=== PATIENT | male | born 1975 | race Caucasian/White ===

== ENCOUNTER 2017-08-13 13:39 | Outpatient (CLI) | payer OTHER | END 2017-08-13 13:40 | disposition short-term general hospital (02) | LOC: EMS 13:39 | PROVIDERS: ATTEND Surgery | DX: R07.9 Chest pain, unspecified (principal); R20.0 Anesthesia of skin | CPT/HCPCS: A0425; A0429 ==

== ENCOUNTER 2018-01-13 16:52 | Outpatient (CLI) | payer OTHER | END 2018-01-13 16:53 | disposition short-term general hospital (02) | LOC: EMS 16:52 | PROVIDERS: ATTEND Surgery | DX: T82.199A Other mechanical complication of unspecified cardiac device, initial encounter (principal) | CPT/HCPCS: A0425; A0427 ==

== ENCOUNTER 2018-01-19 07:31 | Outpatient (CLI) | payer OTHER | END 2018-01-19 07:32 | disposition short-term general hospital (02) | LOC: EMS 07:31 | PROVIDERS: ATTEND Surgery | DX: R07.9 Chest pain, unspecified (principal); R20.0 Anesthesia of skin; R06.02 Shortness of breath | CPT/HCPCS: A0425; A0427 ==

== ENCOUNTER 2019-12-25 07:18 | Outpatient (CLI) | payer MEDICARE | END 2019-12-25 07:19 | disposition short-term general hospital (02) | LOC: EMS 07:18 | PROVIDERS: ATTEND Surgery | DX: R07.9 Chest pain, unspecified (principal); R06.02 Shortness of breath | CPT/HCPCS: A0425; A0427 ==

== ENCOUNTER 2020-02-15 11:02 | Outpatient (CLI) | payer MEDICARE | END 2020-02-15 11:03 | disposition EMS.NT | LOC: EMS 11:02 | PROVIDERS: ATTEND Surgery | DX: R19.7 Diarrhea, unspecified (principal) ==

== ENCOUNTER 2020-02-16 09:27 | Outpatient (CLI) | payer MEDICARE | END 2020-02-16 09:28 | disposition short-term general hospital (02) | LOC: EMS 09:27 | PROVIDERS: ATTEND Surgery | DX: R41.82 Altered mental status, unspecified (principal); R42 Dizziness and giddiness; R06.02 Shortness of breath; R05 Cough | CPT/HCPCS: A0425; A0429 ==

== ENCOUNTER 2021-07-04 09:04 | Outpatient (CLI) | payer MEDICARE | END 2021-07-04 09:05 | disposition critical access hospital (66) | LOC: EMS 09:04 | DX: T42.4X2A Poisoning by benzodiazepines, intentional self-harm, initial encounter (principal) | CPT/HCPCS: A0425; A0427 ==

== ENCOUNTER 2021-07-04 09:22 | Inpatient (IN) | payer MEDICARE ==
[2021-07-04] MEDS ORDERED: CHARCOAL ACTIVATED 25 GM/120 ML BOTTLE PO STA (09:36)
[2021-07-04] MEDS ORDERED: FLUMAZENIL 0.1 MG/1 ML 5 ML MDV IVP STA (09:36)
[2021-07-04] MEDS ORDERED: SODIUM CHLORIDE 0.9% 1,000 ML IV STA (09:37)
--- NOTE | 2021-07-04 09:37 | ED Physician Documentation ---
PD HPI OVERDOSE - Stated complaint Stated Complaint: SI/OVERDOSE - Chief complaint Chief Complaint: MHE - History obtained from History obtained from: Patient, EMS - History of Present Illness Timing - onset: How many hours ago (1), Today (08:15 am) Subtance(s) ingested: Single (intentional with suicide intent), Benzo (27 Ativan tablets (friends Rx - he says he is not on benzos)). No: EtOH Associated symptoms: Decreased responsiveness, Altered mental status Contributing factors: Depresssed, Suicidal Similar symptoms before: Diagnosis (He states a remote history of overdose many years ago. No recent suicidal ideations until now. Ongoing depression though.) Review of Systems Unable to obtain: AMS (somnolent) Cardiac: denies: Chest pain / pressure Respiratory: denies: Cough GI: denies: Vomiting, Diarrhea PD PAST MEDICAL HISTORY - Past Medical History Cardiovascular: Other (nonischemic cardiomyopathy) Respiratory: None Neuro: None Endocrine/Autoimmune: Type 2 diabetes Psych: Depression, Anxiety, Bipolar disorder - Present Medications Home Medications: Ambulatory Orders Medication Instructions Recorded Confirmed Amantadine HCl [Amantadine] 100 mg PO BID 07/04/21 Buspirone HCl 30 mg PO BID 07/04/21 Divalproex Sodium [Depakote ER] 500 mg PO TID 07/04/21 LORazepam [Ativan] 1 mg PO DAILY PRN 07/04/21 Metoprolol Succinate 100 mg PO DAILY 07/04/21 OXcarbazepine [Trileptal] 600 mg PO TID 07/04/21 Sacubitril/Valsartan [Entresto 97 1 tablet PO BID 07/04/21 mg-103 mg Tablet] allopurinoL [Zyloprim] 100 mg PO DAILY 07/04/21 glipiZIDE [Glucotrol] 5 mg PO BID 07/04/21 hydrALAZINE [Apresoline] 25 mg PO BID 07/04/21 metFORMIN [Glucophage] 1,000 mg PO BIDWM 07/04/21 - Allergies Allergies/Adverse Reactions: Allergies Allergy/AdvReac Type Severity Reaction Status Date / Time paliperidone [From Invega] Allergy Unknown Verified 07/04/21 09:34 PD ED PE NORMAL - Vitals Vital signs reviewed: Yes - General General: No acute distress, Well developed/nourished, Other (somnolent but rouses to tactile light stimulus. ) - HEENT HEENT: Pharynx benign (good gag reflex, so can give PO charcoal. ) - Neck Neck: Supple, no meningeal sign, No adenopathy - Cardiac Cardiac: RRR, No murmur - Respiratory Respiratory: Clear bilaterally - Abdomen Abdomen: Soft, Non tender - Derm Derm: Normal color, Warm and dry - Extremities Extremities: Normal ROM s pain, No edema, No calf tenderness / cord - Neuro Neuro: Alert and oriented X 3, No motor deficit, Normal speech Results - Vitals Vitals: Vital Signs - 24 hr 07/04/21 07/04/21 07/04/21 09:30 09:58 10:03 Temperature 36.3 C L 36.4 C L Heart Rate 70 76 80 Respiratory 16 16 16 Rate Blood Pressure 129/78 128/77 135/78 H O2 Saturation 97 95 95 07/04/21 07/04/21 07/04/21 10:31 11:11 11:48 Temperature 36.5 C Heart Rate 75 78 70 Respiratory 16 23 21 Rate Blood Pressure 110/70 110/77 96/77 O2 Saturation 96 98 98 Oxygen O2 Source Room air - Labs Labs: Laboratory Tests 07/04/21 07/04/21 07/04/21 09:56 09:56 09:56 WBC 4.9 RBC 4.17 L Hgb 13.2 L Hct 37.3 L MCV 89.4 MCH 31.7 H MCHC 35.4 RDW 12.2 Plt Count 172 MPV 9.6 Neut # (Auto) 3.1 Lymph # (Auto) 1.2 L [place] # (Auto) 0.5 Eos # (Auto) 0.1 Baso # (Auto) 0.0 Absolute Nucleated RBC 0.00 Nucleated RBC % 0.0 Sodium 136 Potassium 4.0 Chloride 100 L Carbon Dioxide 25 Anion Gap 11.0 BUN 28 H Creatinine 1.0 Estimated GFR (MDRD) 80 L Glucose 161 H Calcium 8.7 Total Bilirubin 0.7 AST 21 ALT 35 Alkaline Phosphatase 78 Total Protein 7.3 Albumin 4.2 Globulin 3.1 Albumin/Globulin Ratio 1.4 Lipase 28 TSH 1.00 Nasal Adenovirus (PCR) Nasal B. parapertussis DNA (PCR) Nasal Coronavir 229E PCR Nasal Coronavir HKU1 PCR Nasal Coronavir NL63 PCR Nasal Coronavir OC43 PCR Nasal Enterovir/Rhinovir PCR Nasal Influenza B PCR Nasal Influenza A PCR Nasal Parainfluen 1 PCR Nasal Parainfluen 2 PCR Nasal Parainfluen 3 PCR Nasal Parainfluen 4 PCR Nasal RSV (PCR) Nasal B.pertussis DNA PCR Nasal C.pneumoniae (PCR) Pierre Human Metapneumo PCR Nasal M.pneumoniae (PCR) Nasal SARS-CoV-2 (PCR) Salicylates < 6.0 Acetaminophen < 10 L Ethyl Alcohol < 5.0 07/04/21 07/04/21 10:14 12:00 WBC RBC Hgb Hct MCV MCH MCHC RDW Plt Count MPV Neut # (Auto) Lymph # (Auto) [place] # (Auto) Eos # (Auto) Baso # (Auto) Absolute Nucleated RBC Nucleated RBC % Sodium Potassium Chloride Carbon Dioxide Anion Gap BUN Creatinine Estimated GFR (MDRD) Glucose Calcium Total Bilirubin AST ALT Alkaline Phosphatase Total Protein Albumin Globulin Albumin/Globulin Ratio Lipase TSH Nasal Adenovirus (PCR) NOT DETECTED NOT DETECTED Nasal B. parapertussis DNA (PCR) NOT DETECTED NOT DETECTED Nasal Coronavir 229E PCR NOT DETECTED NOT DETECTED Nasal Coronavir HKU1 PCR NOT DETECTED NOT DETECTED Nasal Coronavir NL63 PCR NOT DETECTED NOT DETECTED Nasal Coronavir OC43 PCR NOT DETECTED NOT DETECTED Nasal Enterovir/Rhinovir PCR NOT DETECTED NOT DETECTED Nasal Influenza B PCR NOT DETECTED NOT DETECTED Nasal Influenza A PCR NOT DETECTED NOT DETECTED Nasal Parainfluen 1 PCR NOT DETECTED NOT DETECTED Nasal Parainfluen 2 PCR NOT DETECTED NOT DETECTED Nasal Parainfluen 3 PCR NOT DETECTED NOT DETECTED Nasal Parainfluen 4 PCR NOT DETECTED NOT DETECTED Nasal RSV (PCR) NOT DETECTED NOT DETECTED Nasal B.pertussis DNA PCR NOT DETECTED NOT DETECTED Nasal C.pneumoniae (PCR) NOT DETECTED NOT DETECTED Pierre Human Metapneumo PCR NOT DETECTED NOT DETECTED Nasal M.pneumoniae (PCR) NOT DETECTED NOT DETECTED Nasal SARS-CoV-2 (PCR) NOT DETECTED NOT DETECTED Salicylates Acetaminophen Ethyl Alcohol PD MEDICAL DECISION MAKING - ED course Complexity details: reviewed results, re-evaluated patient (remains responsive to partly eye opening and mumbling with tactile stimulus. ), considered differential (Somnolent initially and he did respond with some increased alertness briefly with some flumazenil. Otherwise his oxygenation is good and not hypoventilating.), d/w patient ED course: The nursing called poison control and they gave the obvious precautions of blood pressure and ventilatory status and alertness for benzodiazepines. Their estimate of time for observation is at least 12 hours. He is significantly somnolent though not hypoventilating nor hypoxic. We anticipate a prolonged time for further psychological evaluation and medical clearance. As such I talked with the hospitalist who agreed on having the patient in the hospital. Departure - Departure Disposition: 66 [facility] DC/Xfer Clinical Impression: Intentional benzodiazepine overdose, AMS (altered mental status), Depression, Suicidal behavior Condition: Stable Record reviewed to determine appropriate education?: Yes
--- NOTE | 2021-07-04 10:00 | XRAY Report ---
PROCEDURE: Chest 1 View X-Ray INDICATIONS: chest pain TECHNIQUE: One view of the chest was acquired. COMPARISON: None. FINDINGS: Surgical changes and devices: A left chest wall AICD is present with a single lead projecting over th e right ventricle. Lungs and pleura: There are low lung volumes. Pulmonary vascular prominence may represent mild edema or vascular crowding. The left lateral costophrenic angle is not well visualized. No right pleural e ffusion. No pneumothorax. Mediastinum: Mediastinal contours appear normal. Heart size is normal. Bones and chest wall: No suspicious bony lesions. Overlying soft tissues appear unremarkable. IMPRESSION: 1. Low lung volumes with pulmonary vascular prominence consistent with edema or vascular crowding. Reviewed by: Yoandy Morales MD on 07/04/2021 9:59 AM PDT Approved by: Yoandy Morales MD on 07/04/2021 9:59 AM PDT Station ID: [id number]
[2021-07-04 10:04] LABS: BASOPHILS % (AUTO) 0.6 %; EOSINOPHILS # (AUTO) 0.1 10^3/uL (0.0-0.7); EOSINOPHILS % (AUTO) 1.4 %; HCT - HEMATOCRIT 37.3 % (42.0-52.0); HGB - HEMOGLOBIN 13.2 g/dL (14.0-18.0); LYMPHOCYTES # (AUTO) 1.2 10^3/uL (1.5-3.5); LYMPHOCYTES % (AUTO) 25.1 %; MEAN CORPUSCULAR HEMOGLOBIN 31.7 pg (27.0-31.0); MEAN CORPUSCULAR HGB CONC 35.4 g/dL (32.0-36.0); MEAN CORPUSCULAR VOLUME 89.4 fL (80.0-94.0); MEAN PLATELET VOLUME 9.6 fL (7.4-11.4); MONOCYTES # (AUTO) 0.5 10^3/uL (0.0-1.0); MONOCYTES % (AUTO) 9.7 %; NEUTROPHILS # (AUTO) 3.1 10^3/uL (1.5-6.6); PLT - PLATELET COUNT 172 10^3/uL (130-450); RED BLOOD COUNT 4.17 10^6/uL (4.70-6.10); RED CELL DISTRIBUTION WIDTH 12.2 % (12.0-15.0); WHITE BLOOD COUNT 4.9 x10^3/uL (4.8-10.8)
[2021-07-04 10:21] LABS: ACETAMINOPHEN < 10 ug/mL (10-30); ALBUMIN 4.2 g/dL (3.2-5.5); ALBUMIN/GLOBULIN RATIO 1.4 (1.0-2.2); ALKALINE PHOSPHATASE 78 IU/L (42-121); ALT ALANINE AMINOTRANSFERASE 35 IU/L (10-60); AST ASPARTATE AMINOTRANSFERASE 21 IU/L (10-42); BILIRUBIN,TOTAL 0.7 mg/dL (0.2-1.0); BUN - BLOOD UREA NITROGEN 28 mg/dL (6-20); CALCIUM 8.7 mg/dL (8.5-10.3); CARBON DIOXIDE - CO2 25 mmol/L (21-32); CHLORIDE 100 mmol/L (101-111); ETOH - ETHANOL < 5.0 mg/dL; GFR - MDRD 80 (>89); GLUCOSE 161 mg/dL (70-100); LIPASE 28 U/L (22-51); SALICYLATE < 6.0 mg/dL; SODIUM 136 mmol/L (135-145); TOTAL PROTEIN 7.3 g/dL (6.7-8.2)
[2021-07-04 11:12] LABS: CORONAVIRUS 229E-RESP PCR NOT DETECTED; CORONAVIRUS HKU1-RESP PCR NOT DETECTED; CORONAVIRUS NL63-RESP PCR NOT DETECTED; CORONAVIRUS OC43-RESP PCR NOT DETECTED; HUMAN METAPNEUMOVIRUS NOT DETECTED; INFLUENZA A- RESP PCR PANEL NOT DETECTED; RHINOVIRUS/ENTEROVIRUS NOT DETECTED; SARS-CoV-2 -RESP PCR PANEL NOT DETECTED
[2021-07-04 11:13] LABS: B. PARAPERTUSSIS- RESP PCR PAN NOT DETECTED; B. PERTUSSIS- RESP PCR PANEL NOT DETECTED; C. PNEUMONIAE- RESP PCR PANEL NOT DETECTED; INFLUENZA B - RESP PCR PANEL NOT DETECTED; M. PNEUMONIAE- RESP PCR PANEL NOT DETECTED; PARAINFLUENZA VIRUS 1 NOT DETECTED; PARAINFLUENZA VIRUS 2 NOT DETECTED; PARAINFLUENZA VIRUS 3 NOT DETECTED; PARAINFLUENZA VIRUS 4 NOT DETECTED; RSV- RESP PCR PANEL NOT DETECTED
[2021-07-04] MEDS ORDERED: ONDANSETRON 4 MG/2 ML VIAL IVP PRN (12:42)
[2021-07-04] MEDS ORDERED: SODIUM CHLORIDE FLUSH 0.9% 10 ML SYRINGE IVP PRN (12:42)
[2021-07-04] MEDS ORDERED: FLUMAZENIL 0.1 MG/1 ML 5 ML MDV IVP ONE (13:20)
[2021-07-04 13:23] LABS: B. PARAPERTUSSIS- RESP PCR PAN NOT DETECTED; B. PERTUSSIS- RESP PCR PANEL NOT DETECTED; C. PNEUMONIAE- RESP PCR PANEL NOT DETECTED; CORONAVIRUS 229E-RESP PCR NOT DETECTED; CORONAVIRUS HKU1-RESP PCR NOT DETECTED; CORONAVIRUS NL63-RESP PCR NOT DETECTED; CORONAVIRUS OC43-RESP PCR NOT DETECTED; HUMAN METAPNEUMOVIRUS NOT DETECTED; INFLUENZA A- RESP PCR PANEL NOT DETECTED; INFLUENZA B - RESP PCR PANEL NOT DETECTED; M. PNEUMONIAE- RESP PCR PANEL NOT DETECTED; PARAINFLUENZA VIRUS 1 NOT DETECTED; PARAINFLUENZA VIRUS 2 NOT DETECTED; PARAINFLUENZA VIRUS 3 NOT DETECTED; PARAINFLUENZA VIRUS 4 NOT DETECTED; RHINOVIRUS/ENTEROVIRUS NOT DETECTED; RSV- RESP PCR PANEL NOT DETECTED; SARS-CoV-2 -RESP PCR PANEL NOT DETECTED
[2021-07-04] MEDS: D5NS W/20 MEQ KCL 1,000 ML IV SCH (14:00)
--- NOTE | 2021-07-04 14:47 | PHARMACY PROGRESS NOTE ---
- Best Possible Medication History Admit Date and Time: 07/04/21 1242 Processed by: Pharmacy Medication History completed: Yes Patient Interview: Completed (PATIENT BROUGHT IN MED PACK WITH LIST) As the person ultimately responsible for medication therapy, providers are able to order a medication from an existing home medication list in [facility] via the "Reconcile Routine" prior to Confirmation of that medication by systems support officer. Such practice is discouraged except when the physician, in their clinical judgment, deems that a medical need exists for a medication without regard to previous use.
[2021-07-04 15:03] LABS: VALPROIC ACID (DEPAKOTE) 95.5 ug/mL
[2021-07-04 15:08] LABS: MUDS CUTOFF CONCENTRATIONS CUTOFF CONC BELOW:
[2021-07-04 15:11] LABS: BILIRUBIN,URINE NEGATIVE (NEGATIVE); GLUCOSE, URINE (UA) 500 mg/dL (NEGATIVE); KETONES,URINE (UA) TRACE mg/dL (NEGATIVE); LEUKOCYTE ESTERASE, URINE NEGATIVE (NEGATIVE); NITRITE,URINE NEGATIVE (NEGATIVE); OCCULT BLOOD,URINE NEGATIVE (NEGATIVE); PROTEIN,URINE TRACE mg/dL (NEGATIVE); UROBILINOGEN,URINE 0.2 (NORMAL) E.U./dL (NORMAL)
[2021-07-04 15:15] LABS: CLARITY,URINE CLEAR (CLEAR)
[2021-07-04 15:22] LABS: AMPHETAMINE SCREEN,URINE NEGATIVE (NEGATIVE); BARBITURATE SCREEN,UR NEGATIVE (NEGATIVE); BENZODIAZEPINES SCREEN, URINE POSITIVE (NEGATIVE); COCAINE SCREEN URINE NEGATIVE (NEGATIVE); METHADONE SCREEN, URINE NEGATIVE (NEGATIVE); METHAMPHETAMINES SCREEN, URINE NEGATIVE (NEGATIVE); OPIATE SCREEN, URINE NEGATIVE (NEGATIVE); OXYCODONE SCREEN, URINE NEGATIVE (NEGATIVE); PROPOXYPHENE SCREEN, URINE NEGATIVE (NEGATIVE); THC CANNABINOID SCREEN, URINE NEGATIVE (NEGATIVE); TRICYCLIC ANTIDEPRESSANT,URINE NEGATIVE (NEGATIVE)
--- NOTE | 2021-07-04 16:16 | HISTORY & PHYSICAL EXAMINATION ---
Chief Complaint - Chief Complaint Chief Complaint: Intentional OD History of Present Illness - Admitted From Admitted From:: ED - History Obtained From History obtained from: ED provider and at bedside - History of Present Illness HPI Comment/Other: This is a 45-year-old WM with history of obesity, Diabetes on oral agents, ideopathic cardiomyopathy diagnosed in 2016, defibrillator replaced in 2017, history of bipolar disorder with several medications recently being adjusted and he is followed closely every 2 weeks by a therapist. In 1998 he had suicidal attempt by cutting. His works from home and states that he has been open and communicating with her whether he feels dangerous emotions. Recently he has been more tired because his Entresto dose was increased which dropped his blood pressure, she said. He also has had recent paranoia of neighbors spying on him. She thinks he has been compliant with all of his psychiatric medications. He does not hold down a job, is on SSI. This morning he came in after he took the garbage out and said he was tired and was going back to sleep, then about 1 hour later, he came into her home office, was tearful and said that he intentionally took an entire bottle of Ativan as a suicide attempt. he was brought to the ED. His BP has been stable and O2 saturations have been over 90% on room air, but he is extremely lethargic and was witnessed to hypoventilate. He received Romazicon IV x1 which only resulted in briefly being more awake. He also received charcoal in the ED. The ED provider spoke to poison control center who indicated that having taken about 27 tablets of Ativan will cause somnolence for 12 to 24 hours during which time he needs to be watched. He will be admitted to the ICU because of suicidal ideation, benzodiazepine overdose, watching his ventilation, or for respiratory acidosis or coma. History - Past Medical History Cardiovascular: reports: Congestive heart failure Respiratory: reports: None Neuro: reports: None Endocrine/Autoimmune: reports: Type 2 diabetes Psych: reports: Depression, Anxiety, Bipolar disorder - Family & Social History Living arrangement: At home Living Situation: With spouse/s.o. Social History Notes: Does not work, is on SSI because of his cardiomyopathy. - POLST Patient has POLST: No POLST Status: Full Code Meds/Allgy - Home Medications Home Medications: Ambulatory Orders Medication Instructions Recorded Confirmed Amantadine HCl [Amantadine] 100 mg PO BID 07/04/21 07/04/21 Aspirin EC [Ecotrin] 81 mg PO DAILY 07/04/21 07/04/21 Atorvastatin Calcium [Lipitor] 80 mg PO QPM 07/04/21 07/04/21 Buspirone HCl 30 mg PO BID 07/04/21 07/04/21 Digoxin [Lanoxin] 125 mcg PO DAILY 07/04/21 07/04/21 Divalproex Sodium [Depakote ER] 1,500 mg PO QPM 07/04/21 07/04/21 Magnesium Chloride [Magnesium] 64 mg PO DAILY 07/04/21 07/04/21 Metoprolol Succinate 100 mg PO QPM 07/04/21 07/04/21 Metoprolol Succinate 200 mg PO DAILY 07/04/21 07/04/21 OXcarbazepine [Trileptal] 1,800 mg PO QPM 07/04/21 07/04/21 Sacubitril/Valsartan [Entresto 97 1 tablet PO BID 07/04/21 07/04/21 mg-103 mg Tablet] Spironolactone [Aldactone] 100 mg PO DAILY 07/04/21 07/04/21 Torsemide 20 mg PO DAILY 07/04/21 07/04/21 allopurinoL [Zyloprim] 100 mg PO DAILY 07/04/21 07/04/21 glipiZIDE [Glucotrol] 5 mg PO BID 07/04/21 07/04/21 hydrALAZINE [Apresoline] 25 mg PO BID 07/04/21 07/04/21 metFORMIN [Glucophage] 1,000 mg PO BIDWM 07/04/21 07/04/21 - Allergies Allergies/Adverse Reactions: Allergies Allergy/AdvReac Type Severity Reaction Status Date / Time paliperidone [From Invega] Allergy Unknown Verified 07/04/21 09:34 Review of Systems - Constitutional Constitutional: reports: Fatigue - Cardiovascular Cariovascular: reports: Other (Fatigue when BP low) - Psychiatric Psychiatric: reports: Depression, Anxiety, Suicidal, Other (Paranoia) - All Other Systems All Other Systems: reports: Reviewed and negative Exam - Vital Signs Reviewed Vital Signs: Yes Vital Signs: Vital Signs x48h Temp Pulse Pulse Resp BP BP Pulse Ox 07/04/21 15:04 77 15 122/82 H 99 07/04/21 15:00 68 18 122/82 H 96 07/04/21 14:33 67 18 131/92 H 99 07/04/21 13:30 67 18 112/72 96 07/04/21 13:00 36.5 C 69 69 17 97/78 130/69 96 07/04/21 12:30 72 20 120/52 L 98 07/04/21 12:00 74 18 119/71 98 07/04/21 11:48 70 21 96/77 98 07/04/21 11:11 78 23 110/77 98 07/04/21 10:31 36.5 C 75 16 110/70 96 07/04/21 10:03 36.4 C L 80 16 135/78 H 95 07/04/21 09:58 76 16 128/77 95 07/04/21 09:30 36.3 C L 70 16 129/78 97 - Physical Exam General Appearance: positive: Lethargic, Other (Obese) Eyes Bilateral: positive: Normal inspection, PERRL, EOMI ENT: positive: ENT inspection nml, No signs of dehydration Neck: positive: Nml inspection, No JVD Respiratory: positive: No respiratory distress, Breath sounds nml Cardiovascular: positive: Regular rate & rhythm, No murmur Abdomen: positive: Non-tender, Nml bowel sounds (Obese with a pannus) Skin: positive: Warm, Dry Extremities: positive: Non-tender, No pedal edema Neurologic/Psychiatric: positive: Other (Somnolent, awakens briefly to name. Moving all extrem spontaneously) Conclusion/Plan - Problem List (1) Intentional benzodiazepine overdose Conclusion/Plan: Will monitor his ventilations, vital signs and emotions with one-to-one sitter, admit to the ICU. (2) Suicidal behavior Conclusion/Plan: Will order 1:1 sitter to monitor. Will request Social Work consult for mental health eval, poss transfer for Inpt psych management, after he is medically cleared, probably tomorrow. (3) Depression Conclusion/Plan: Will hold his sedating antidepressants until he is more awake, restart them tomorrow. Mental health evaluation by social work tomorrow (4) Somnolence Conclusion/Plan: Will order neuro checks every 2 hours in order to watch for hypoventilation. If, from an ABG, BIPAP is needed he will remain in the ICU (5) Diabetes Conclusion/Plan: We will slowly advance his diet as he awakens, to a cc diet eventually. We will start fingerstick glucose checks, sliding scale insulin coverage and hypoglycemia per protocol management. We will resume his glipizide tomorrow and metformin after he is discharged (6) Cardiomyopathy Conclusion/Plan: Will resume his carvedilol but hold the Entresto since the described that it was causing low blood pressure and fatigue and possibly adding to depression. We will continue the spironolactone but hold the Lasix while he is getting IV fluids from 1 day since he is not eating - Lab Results Fish Bones: 07/04/21 09:56 07/04/21 09:56
[2021-07-04] MEDS: SODIUM CHLORIDE FLUSH 0.9% 10 ML SYRINGE IVP SCH (17:00)
[2021-07-04] MEDS ORDERED: METOPROLOL SUCCINATE 50 MG TABLET PO SCH (21:00)
[2021-07-04] MEDS: INSULIN ASPART 300 UNIT/3 ML PEN SUBQ SCH (21:25)
[2021-07-05] MEDS: D5NS W/20 MEQ KCL 1,000 ML IV SCH (02:04)
[2021-07-05] MEDS: SODIUM CHLORIDE FLUSH 0.9% 10 ML SYRINGE IVP SCH (02:04)
[2021-07-05 06:07] LABS: BASOPHILS % (AUTO) 0.9 %; EOSINOPHILS # (AUTO) 0.1 10^3/uL (0.0-0.7); EOSINOPHILS % (AUTO) 2.2 %; HCT - HEMATOCRIT 34.6 % (42.0-52.0); HGB - HEMOGLOBIN 11.8 g/dL (14.0-18.0); LYMPHOCYTES # (AUTO) 1.5 10^3/uL (1.5-3.5); LYMPHOCYTES % (AUTO) 32.8 %; MEAN CORPUSCULAR HEMOGLOBIN 31.1 pg (27.0-31.0); MEAN CORPUSCULAR HGB CONC 34.1 g/dL (32.0-36.0); MEAN CORPUSCULAR VOLUME 91.1 fL (80.0-94.0); MEAN PLATELET VOLUME 9.8 fL (7.4-11.4); MONOCYTES # (AUTO) 0.5 10^3/uL (0.0-1.0); MONOCYTES % (AUTO) 9.7 %; NEUTROPHILS # (AUTO) 2.5 10^3/uL (1.5-6.6); NEUTROPHILS % (AUTO) 54.2 %; PLT - PLATELET COUNT 147 10^3/uL (130-450); RED CELL DISTRIBUTION WIDTH 12.4 % (12.0-15.0); WHITE BLOOD COUNT 4.6 x10^3/uL (4.8-10.8)
[2021-07-05 06:10] LABS: CALCIUM 8.4 mg/dL (8.5-10.3); CREATININE 0.8 mg/dL (0.6-1.2); MAGNESIUM 1.6 mg/dL (1.7-2.8)
[2021-07-05] MEDS ORDERED: PANTOPRAZOLE 40 MG VIAL IVP SCH (07:00)
[2021-07-05] MEDS ORDERED: MAGNESIUM OXIDE 400 MG TABLET PO SCH (08:00)
[2021-07-05] MEDS ORDERED: glipiZIDE 5 MG TABLET PO SCH (09:00)
[2021-07-05] MEDS ORDERED: allopurinoL 100 MG TABLET PO SCH (09:00)
[2021-07-05] MEDS ORDERED: TORSEMIDE 20 MG TABLET PO SCH (09:00)
[2021-07-05] MEDS ORDERED: SPIRONOLACTONE 25 MG TABLET PO SCH (09:00)
[2021-07-05] MEDS ORDERED: ASPIRIN EC 81 MG TABLET PO SCH (09:00)
[2021-07-05] MEDS ORDERED: METOPROLOL SUCCINATE 50 MG TABLET PO SCH (09:00)
[2021-07-05] MEDS: INSULIN ASPART 300 UNIT/3 ML PEN SUBQ SCH ×2 (09:45→12:15)
[2021-07-05 12:45] LABS: ESTIMATED AVERAGE GLUCOSE 143 mg/dL (70-100); HEMOGLOBIN A1c% 6.6 % (4.27-6.07)
--- NOTE | 2021-07-05 15:08 | Discharge Plan ---
Discharge Plan Problem Reviewed?: Yes Disposition: 02 Transfer Acute Care Hosp Condition: Stable No Smoking: If you smoke, Please STOP! Call for help. Follow-up with: RADHA SANTILLAN MD [Primary Care Provider] -
--- NOTE | 2021-07-05 15:10 | DISCHARGE SUMMARY ---
Discharge Summary Admit Date: 07/04/21 Discharge Date: 07/05/21 Discharging Provider: Dr Debby Peterson Primary Care Provider: Dr Leon Padron Code Status: Attempt Resuscitation Condition at Discharge: Fair Discharge Disposition: 02 Transfer Acute Care Hosp Discharge Facility Name: [facility] - [facility] History of Present Illness: This is a 45-year-old WM with history of obesity, Diabetes on oral agents, ideopathic cardiomyopathy diagnosed in 2016, defibrillator placed in 2017, history of bipolar disorder with several medications recently being adjusted and he is followed closely every 2 weeks by a therapist. In 1998 he had suicidal attempt by cutting. His works from home and states that he has been open and communicating with her whether he feels dangerous emotions. Recently he has been more tired because his Entresto dose was increased which dropped his blood pressure, the reported. He has voiced recent paranoia of neighbors spying on him. She thinks he has been compliant with all of his psychiatric medications. He does not have a job, is on SSI. This morning he came in after he took the garbage out and said he was tired and was going back to sleep, then about 1 hour later, he came into her home office, was tearful and said that he intentionally took an entire bottle of Ativan, trying to kill himself. He was brought to the ED. His BP has been stable and O2 saturations have been over 90% on room air, but he is extremely lethargic and was witnessed to hypoventilate. He received Romazicon IV x1 which only resulted in briefly being more awake. He also received charcoal in the ED. The ED provider spoke to poison control center who indicated that having taken the reported 27 tablets of Ativan will cause somnolence for 12 to 24 hours, during which time he needs to be watched. He will be admitted to the ICU because of suicidal ideation, benzodiazepine over dose, monitoring his ventilation for respiratory acidosis or development of coma. - HOSPITAL COURSE Hospital Course: (1) Intentional benzodiazepine overdose We monitored his ventilations, vital signs and later his voiced emotions with one-to-one sitter. He was awake and conversant the following day and did confirm his intentional wish for self-harm. (2) Suicidal behavior We ordered 1:1 sitter to monitor him. A Social Work consult for mental health eval was done when he awoke, and he needed transfer for Inpatient psychiatry management. (3) Bipolar disorder We held his sedating antidepressants until he awoke, restarted them the following day. Mental health evaluation was done by social work and he required transfer. (4) Somnolence We order neuro checks every 2 hours in order to watch for hypoventilation. He awoke by the following day, was able to converse and eat. (5) Diabetes We slowly advanced his diet, as he awoke, to a carb-controlled diet and ordered fingerstick glucose checks, sliding scale insulin coverage and hypoglycemia monitoring per protocol. He may resume his glipizide and metformin at discharge . (6) Cardiomyopathy He was euvolemic and not in CHF exacerbation. We resumed his carvedilol when he could swallow, but held the Entresto since the described that it was causing low blood pressure and fatigue. We resumed the spironolactone but held the Lasix while he needed IV fluids, being unable to eat due to obtundation. - ALLERGIES Allergies/Adverse Reactions: Allergies Allergy/AdvReac Type Severity Reaction Status Date / Time paliperidone [From Invega] Allergy Unknown Verified 07/04/21 09:34 - MEDICATIONS Home Medications: Ambulatory Orders Medication Instructions Recorded Confirmed Amantadine HCl [Amantadine] 100 mg PO BID 07/04/21 07/04/21 Aspirin EC [Ecotrin] 81 mg PO DAILY 07/04/21 07/04/21 Atorvastatin Calcium [Lipitor] 80 mg PO QPM 07/04/21 07/04/21 Buspirone HCl 30 mg PO BID 07/04/21 07/04/21 Digoxin [Lanoxin] 125 mcg PO DAILY 07/04/21 07/04/21 Divalproex Sodium [Depakote ER] 1,500 mg PO QPM 07/04/21 07/04/21 Magnesium Chloride [Magnesium] 64 mg PO DAILY 07/04/21 07/04/21 Metoprolol Succinate 100 mg PO QPM 07/04/21 07/04/21 Metoprolol Succinate 200 mg PO DAILY 07/04/21 07/04/21 OXcarbazepine [Trileptal] 1,800 mg PO QPM 07/04/21 07/04/21 Sacubitril/Valsartan [Entresto 97 1 tablet PO BID 07/04/21 07/04/21 mg-103 mg Tablet] Spironolactone [Aldactone] 100 mg PO DAILY 07/04/21 07/04/21 Torsemide 20 mg PO DAILY 07/04/21 07/04/21 allopurinoL [Zyloprim] 100 mg PO DAILY 07/04/21 07/04/21 glipiZIDE [Glucotrol] 5 mg PO BID 07/04/21 07/04/21 hydrALAZINE [Apresoline] 25 mg PO BID 07/04/21 07/04/21 metFORMIN [Glucophage] 1,000 mg PO BIDWM 07/04/21 07/04/21 - PHYSICAL EXAM AT DISCHARGE General Appearance: positive: No acute distress, Lethargic, Other (Obese) Eyes Bilateral: positive: EOMI, Other (Appears sleepy) ENT: positive: ENT inspection nml, No signs of dehydration Neck: positive: Nml inspection, No JVD Respiratory: positive: No respiratory distress, Breath sounds nml Cardiovascular: positive: Regular rate & rhythm, No murmur Abdomen: positive: Non-tender, Nml bowel sounds, No distention Skin: positive: Warm, Dry Extremities: positive: Non-tender, No pedal edema Neurologic/Psychiatric: positive: Oriented x3 (Speech is slow and has some perseverations. Grossly non-focal exam.) - LABS Result Diagrams: 07/05/21 05:00 07/05/21 05:00 - FOLLOW UP Follow Up: This will be determined after his hospitalization at [facility]. - TIME SPENT Time Spent in Discharge (Minutes): 30
[2021-07-05 16:55] VITALS: BP 157/94
[2021-07-05] MEDS ORDERED: SODIUM CHLORIDE FLUSH 0.9% 10 ML SYRINGE IVP SCH (17:00)
== END 2021-07-05 17:53 | disposition short-term general hospital (02) | DRG 918 ==
LOC: EDUNIT# → ED 09:22 → MS2 12:42 → ICU 13:15
PROVIDERS: ADMIT Internal Medicine; ATTEND Internal Medicine
DX: T42.4X2A Poisoning by benzodiazepines, intentional self-harm, initial encounter (principal); R41.82 Altered mental status, unspecified; Y92.9 Unspecified place or not applicable; Z20.822 Contact with and (suspected) exposure to COVID-19; I42.9 Cardiomyopathy, unspecified; Y92.009 Unspecified place in unspecified non-institutional (private) residence as the place of occurrence of the external cause; F32.9 Major depressive disorder, single episode, unspecified; F31.9 Bipolar disorder, unspecified; R40.0 Somnolence; E11.9 Type 2 diabetes mellitus without complications; Z79.84 Long term (current) use of oral hypoglycemic drugs; E66.9 Obesity, unspecified; I95.2 Hypotension due to drugs; T46.5X5A Adverse effect of other antihypertensive drugs, initial encounter; I50.9 Heart failure, unspecified; R53.83 Other fatigue; F22 Delusional disorders; Z68.37 Body mass index [BMI] 37.0-37.9, adult
CPT/HCPCS: 36415; 71045; 80048; 80053; 80164; 80306; 80307; 81003; 83036; 83690; 83735; 84100; 84443; 85025; 87150; 87631; 93005; 96361; 96374; 99285; A9270; G0480; 0202U; 80320; 80329; 81001; 87086